=== PATIENT | female | born 1980 | race Caucasian/White ===

== ENCOUNTER 2017-01-02 03:44 | Emergency (ER) | payer BC ==
[~2017-01-02] VITALS: Ht 162.6 cm; Wt 111.8 kg
[~2017-01-02 03:44] MED LIST: CHOL100010 PO; LEVO112T4 PO
[2017-01-02 03:48] VITALS: TEMP 36.5; Ht 162.6 cm; Wt 111.8 kg
[2017-01-02] MEDS ORDERED: ONDANSETRON INJ 2 MG/ML 2 ML VIAL IV STA (03:57)
[2017-01-02] MEDS ORDERED: ACETAMINOPHEN IV 650 MG in EMPTY BAG 0 ML IV STA (03:57)
[2017-01-02] MEDS ORDERED: SODIUM CHLORIDE 0.9% 500ML 500 ML IV STA (03:57)
[2017-01-02] MEDS ORDERED: SODIUM CHLORIDE 0.9% 1000ML 1,000 ML IV STA (03:57)
[2017-01-02] MEDS ORDERED: NAPR-1221 PO (04:07)
[2017-01-02] MEDS ORDERED: FLX/5 PO (04:07)
--- NOTE | 2017-01-02 04:11 | EMERGENCY ROOM VISIT NOTE ---
History Report prepared by Meghan: Nnamdi Valente Under the Supervision of: Dr. Jolie Stephens M.D. First contact with patient: 03:53 Chief Complaint: FLANK PAIN Stated Complaint: SEVERE RIGHT SIDE PAIN History of Present Illness The patient is a 36 year old female who presents to the Emergency Room with complaints of waxing and waning pain in the right lower abdominal quadrant that began shortly prior to arrival. She also complains of pain in her right lower back. The patient notes that she felt fine when she went to sleep last night, and woke up in pain early this morning. She has a history of kidney stone and cholecystectomy. She denies any chance of . Source of History: patient Onset: Shortly HEALTH SAFETY MANAGER Position: abdomen (RLQ) Timing: waxes/wanes Associated Symptoms: + back pain Review of Systems See HPI for pertinent positives & negatives. A total of 10 systems reviewed and were otherwise negative. Past Medical & Surgical Medical Problems: (1) Kidney stones Family History Diabetes mellitus FH: cancer FH: heart disease FH: lung disease Hypertension Social History Smoking Status: Never Smoker Marital Status: single Housing Status: unknown Occupation Status: employed Current/Historical Medications Scheduled Levothyroxine Sodium (Levothyroxine Sodium), 1 TAB PO QAM Scheduled PRN Cyclobenzaprine HCl (Cyclobenzaprine HCl), 5 MG PO BID PRN for Muscle Spasms Hydrocodone/Acetaminophen 5MG/325MG ([place] 5MG/325MG), 1 TABLET PO Q6 PRN for Pain Naproxen (Naproxen), 375 MG PO BID PRN for Pain Allergies Coded Allergies: No Known Allergies (Unverified , 01/02/17) Physical Exam Vital Signs Date Time Temp Pulse Resp B/P Pulse Ox O2 Delivery O2 Flow Rate FiO2 01/02/17 06:47 72 18 157/84 96 Room Air 01/02/17 05:21 66 16 134/69 96 Room Air 01/02/17 03:48 36.5 81 18 151/89 94 Room Air Physical Exam Vital signs reviewed. General: Well-appearing female, in no significant distress. HEENT: No scleral icterus, PERRLA, neck supple. Atraumatic. Cardiovascular: Regular rate and rhythm, no extra sounds. Pulmonary: Clear to auscultation bilaterally, normal work of breathing. Abdomen: Soft, positive bowel sounds.Tenderness to palpation in the RUQ. No rebounding or guarding. Obese abdomen. Musculoskeletal: Atraumatic, no peripheral edema. Neurologic: Patient awake alert and oriented x 3 Skin: Warm, dry, no rash Medical Decision & Procedures ER Provider Diagnostic Interpretation: Radiology results as stated below per my review and radiologist interpretation: CT ABDOMEN & PELVIS: The visualized lower thorax is unremarkable. Hepatic steatosis. Gallbladder surgically absent. Spleen, pancreas, and adrenal glands are unremarkable. Nonobstructing calculus within the right kidney. Otherwise, the kidneys, ureters and urinary bladder are unremarkable. The uterus and adnexa are unremarkable. The appendix is within normal limits. The stomach, small bowel, and colon are unremarkable. No free fluid. No free air. No acute osseous abnormality. Radiologist: Tee Medley MD Study ready at 04:20 and initial results transmitted at 04:48. EXAMINATION: PELVIC ULTRASOUND CLINICAL HISTORY: right ovarian cyst, s/p L oophorectomy PAIN COMPARISON STUDY: CT study same date. FINDINGS: The uterus measured 10 cm maximum linear dimension. A retroflexed configuration. Possible 1 cm lower uterine segment endometrial polyp.. The endometrial stripe measured trace free fluid within the central canal. Endometrial thickness 6 mm.. 1 cm lower uterine segment endometrial polyp. The right ovary measured 4 x 3 x 1.9 cm. Normal vascular flow. The left ovary measured surgically removed. There is no ultrasonographic evidence of ovarian torsion. It should be noted that ovarian torsion can be present with normal Doppler ultrasonographic findings. There was no evidence of pathologic free pelvic fluid. IMPRESSION: 1. Status post left ovarian removal. 2. Retroflexed uterus with a 1 cm endometrial polyp the lower uterine segment. 3. Normal vascular flow to the right ovary. Electronically signed by: Addy Collado M.D. 01/02/2017 7:04 AM Dictated Date/Time: 01/02/2017 7:00 AM Laboratory Results 01/02/17 04:00 Red Blood Count 4.35, Mean Corpuscular Volume 88.5, Mean Corpuscular Hemoglobin 31.7, Mean Corpuscular Hemoglobin Concent 35.8, Mean Platelet Volume 8.7, Neutrophils (%) (Auto) 64.0, Lymphocytes (%) (Auto) 26.3, Monocytes (%) (Auto) 6.3, Eosinophils (%) (Auto) 2.9, Basophils (%) (Auto) 0.2, Neutrophils # (Auto) 6.68, Lymphocytes # (Auto) 2.75, Monocytes # (Auto) 0.66, Eosinophils # (Auto) 0.30, Basophils # (Auto) 0.02 01/02/17 04:00 Test 01/02/17 04:00 01/02/17 04:08 White Blood Count 10.44 K/uL (4.8-10.8) Red Blood Count 4.35 M/uL (4.2-5.4) Hemoglobin 13.8 g/dL (12.0-16.0) Hematocrit 38.5 % (37-47) Mean Corpuscular Volume 88.5 fL (80-100) Mean Corpuscular Hemoglobin 31.7 pg (25-34) Mean Corpuscular Hemoglobin Concent 35.8 g/dl (32-36) Platelet Count 330 K/uL (130-400) Mean Platelet Volume 8.7 fL (7.4-10.4) Neutrophils (%) (Auto) 64.0 % Lymphocytes (%) (Auto) 26.3 % Monocytes (%) (Auto) 6.3 % Eosinophils (%) (Auto) 2.9 % Basophils (%) (Auto) 0.2 % Neutrophils # (Auto) 6.68 K/uL (1.4-6.5) Lymphocytes # (Auto) 2.75 K/uL (1.2-3.4) Monocytes # (Auto) 0.66 K/uL (0.11-0.59) Eosinophils # (Auto) 0.30 K/uL (0-0.5) Basophils # (Auto) 0.02 K/uL (0-0.2) RDW Standard Deviation 39.6 fL (36.4-46.3) RDW Coefficient of Variation 12.2 % (11.5-14.5) Immature Granulocyte % (Auto) 0.3 % Immature Granulocyte # (Auto) 0.03 K/uL (0.00-0.02) Anion Gap 6.0 mmol/L (3-11) Est Creatinine Clear Calc Drug Dose 129.7 ml/min Estimated GFR () 123.1 Estimated GFR (Non- 106.2 BUN/Creatinine Ratio 15.6 (10-20) Calcium Level 8.5 mg/dl (8.5-10.1) Total Bilirubin 0.2 mg/dl (0.2-1) Direct Bilirubin < 0.1 mg/dl (0-0.2) Aspartate Amino Transf (AST/SGOT) 18 U/L (15-37) Alanine Aminotransferase (ALT/SGPT) 44 U/L (12-78) Alkaline Phosphatase 72 U/L (45-117) Total Protein 7.6 gm/dl (6.4-8.2) Albumin 3.4 gm/dl (3.4-5.0) Lipase 168 U/L (73-393) Human Chorionic Gonadotropin, Qual NEG (NEG) Urine Color YELLOW Urine Appearance CLEAR (CLEAR) Urine pH 6.5 (4.5-7.5) Urine Specific [place] 1.020 (1.000-1.030) Urine Protein NEG (NEG) Urine Glucose (UA) NEG (NEG) Urine Ketones NEG (NEG) Urine Occult Blood TRACE (NEG) Urine Nitrite NEG (NEG) Urine Bilirubin NEG (NEG) Urine Urobilinogen NEG (NEG) Urine Leukocyte Esterase NEG (NEG) Urine WBC (Auto) 1-5 /hpf (0-5) Urine RBC (Auto) 0-4 /hpf (0-4) Urine Hyaline Casts (Auto) 1-5 /lpf (0-5) Urine Epithelial Cells (Auto) 20-30 /lpf (0-5) Urine Bacteria (Auto) NEG (NEG) Laboratory results per my review. Medications Administered Medications (Trade) Dose Ordered Sig/Shukri Route Start Time Stop Time Status Last Admin Dose Admin Sodium Chloride 500 ml @ 999 mls/hr Q31M STAT IV 01/02/17 03:57 01/02/17 04:27 DC 01/02/17 04:22 999 MLS/HR Sodium Chloride (Nss 1000ml) 1,000 ml @ 200 mls/hr Q5H STAT IV 01/02/17 03:57 01/02/17 08:56 01/02/17 04:22 200 MLS/HR Ondansetron HCl 4 mg 4 mg NOW STAT IV 01/02/17 03:57 01/02/17 04:03 DC 01/02/17 04:07 4 MG Acetaminophen/ Empty Bag (Ofirmev Iv/ Empty Iv Bag 100ml) 65 ml @ 260 mls/hr NOW STAT IV 01/02/17 03:57 01/02/17 04:11 DC 01/02/17 04:22 260 MLS/HR ED Course 0357: Past medical records reviewed. The patient was evaluated in room B9. A complete history and physical examination was performed. \ 0357: Ordered Acetaminophen 65 mL @ 260 mL/hr IV, Zofran 4 mg IV, Sodium Chloride 1000 mL @ 200 mL/hr IV, Sodium Chloride 500 mL @ 999 mL/hr IV. Medical Decision Differential diagnosis: Etiologies such as renal colic, appendicitis, diverticulitis, mesenteric ischemia, aortic pathology, infections, inflammatory bowel disease, PUD, biliary pathology, UTI, as well as others were entertained. This patient was evaluated and appeared to be in some discomfort. IV access was obtained and laboratory work was drawn. Patient was medicated with IV Tylenol and Zofran as she drove to the hospital. She was hydrated with normal saline solution. Laboratory work was obtained and is fairly unrevealing. White blood cell count is normal, urinalysis is negative. Patient's test is negative. CT scan abdomen and pelvis was performed to rule out ureteral calculi, this study is significant for a right intrarenal stone, no ureteral calculi. On reevaluation, the patient is still fairly tender in the right lower quadrant. The appendix is identified on the CT and is normal. Patient is status post cholecystectomy. Liver enzymes are normal. Patient was sent for an ultrasound of the pelvis. This study is significant for an endometrial polyp. Patient is status post left nephrectomy. The etiology of the patient's abdominal pain is unclear at this time. She was asked to use ibuprofen as needed for pain. She will use [place] as needed for more severe pain. She was advised not to drive or to take Tylenol with this medication. Patient will follow-up with her physician this week for reevaluation and schedule plan with [employer] within the next 2 weeks. She will return to the ER for worsening of symptoms or any medical concerns. [place] Drug Monitoring Program Search Results: patient reviewed within database, no issues identified Impression Primary Impression: Right sided abdominal pain Scribe Attestation The scribe's documentation has been prepared under my direction and personally reviewed by me in its entirety. I confirm that the note above accurately reflects all work, treatment, procedures, and medical decision making performed by me. Departure Information Prescriptions Hydrocodone/Acetaminophen 5MG/325MG ([place] 5MG/325MG) Tab 1 TABLET PO Q6 Y for Pain, #20 TAB Prov: Jolie Stephens M.D. 01/02/17 Referrals No Doctor, Assigned (PCP) Patient Instructions [facility]
[2017-01-02 04:16] LABS: HEMATOCRIT 38.5 % (37-47); MEAN CELL VOLUME 88.5 fL (80-100); RED BLOOD COUNT 4.35 M/uL (4.2-5.4); WHITE BLOOD COUNT 10.44 K/uL (4.8-10.8)
[2017-01-02 04:17] LABS: BASO % 0.2 %; BASO ABS # 0.02 K/uL (0-0.2); COMPLETE YES; EOS % 2.9 %; IG% 0.3 %; LYMPH % 26.3 %; LYMPH ABS # 2.75 K/uL (1.2-3.4); MEAN CORPUSCULAR HEMOGLOBIN 31.7 pg (25-34); MEAN CORPUSCULAR HGB CONC 35.8 g/dl (32-36); MEAN PLATELET VOLUME 8.7 fL (7.4-10.4); MONO % 6.3 %; PLATELET COUNT 330 K/uL (130-400)
[2017-01-02 04:20] LABS: URINE APPEARANCE CLEAR (CLEAR); URINE BILIRUBIN NEG (NEG); URINE COLOR YELLOW; URINE EPITHELIAL CELL AUTO 20-30 /lpf (0-5); URINE NITRITE NEG (NEG); URINE PH 6.5 (4.5-7.5); UROBILINOGEN NEG (NEG); ZZUR CULT IF INDIC CLEAN CATCH NO
[2017-01-02 04:21] LABS: MANUAL MICROSCOPIC REQUIRED? NO; REVIEW REQ? NO
[2017-01-02 04:42] LABS: PREG INTERNAL NEGATIVE QC NEG CLEAR BACKGROUND; PREG INTERNAL POSITIVE QC POS CONTROL LINE
[2017-01-02 04:43] LABS: ALT/SGPT 44 U/L (12-78); AST/SGOT 18 U/L (15-37); BLOOD UREA NITROGEN 11 mg/dl (7-18); BUN/CREATININE RATIO 15.6 (10-20); CALCIUM 8.5 mg/dl (8.5-10.1); CARBON DIOXIDE 31 mmol/L (21-32); CHLORIDE 106 mmol/L (98-107); CREATININE 0.72 mg/dl (0.60-1.20); GLUCOSE 106 mg/dl (70-99); POTASSIUM 3.8 mmol/L (3.5-5.1); SODIUM 143 mmol/L (136-145)
[2017-01-02 04:45] LABS: ALKALINE PHOSPHATASE 72 U/L (45-117)
[2017-01-02] MEDS ORDERED: HYDR-5688 PO (06:53)
--- NOTE | 2017-01-02 07:06 | DIAGNOSTIC IMAGING REPORT ---
EXAMINATION: PELVIC ULTRASOUND CLINICAL HISTORY: right ovarian cyst, s/p L oophorectomy PAIN COMPARISON STUDY: CT study same date. FINDINGS: The uterus measured 10 cm maximum linear dimension. A retroflexed configuration. Possible 1 cm lower uterine segment endometrial polyp.. The endometrial stripe measured trace free fluid within the central canal. Endometrial thickness 6 mm.. 1 cm lower uterine segment endometrial polyp. The right ovary measured 4 x 3 x 1.9 cm. Normal vascular flow. The left ovary measured surgically removed. There is no ultrasonographic evidence of ovarian torsion. It should be noted that ovarian torsion can be present with normal Doppler ultrasonographic findings. There was no evidence of pathologic free pelvic fluid. IMPRESSION: 1. Status post left ovarian removal. 2. Retroflexed uterus with a 1 cm endometrial polyp the lower uterine segment. 3. Normal vascular flow to the right ovary. Electronically signed by: Addy Collado M.D. 01/02/2017 7:04 AM Dictated Date/Time: 01/02/2017 7:00 AM
--- NOTE | 2017-01-02 07:39 | DIAGNOSTIC IMAGING REPORT ---
ABDOMEN AND PELVIS CT WITHOUT CONTRAST CT DOSE: 2046.48 mGy.cm HISTORY: Pain R flank pain TECHNIQUE: Multiaxial CT images of the abdomen and pelvis were performed without the use of intravenous and oral contrast according to the standard department stone protocol. COMPARISON STUDY: 12/23/2010 FINDINGS: Lung bases are clear. Fatty infiltration of liver. Pancreas spleen and kidneys are otherwise unremarkable. There is a 4 mm nonobstructing calcification lower aspect right kidney. A pattern is nonobstructive. Uterus is anteflexed. There is no significant free fluid within pelvic cul-de-sac. IMPRESSION: 1. 4 mm nonobstructing calcification lower pole right kidney. 2. Fatty infiltration of liver. 3. Otherwise negative study Electronically signed by: Addy Collado M.D. 01/02/2017 7:36 AM Dictated Date/Time: 01/02/2017 7:26 AM
[2017-01-02 07:54] VITALS: BP 153/67; PULSE 73; O2SAT 97
[2017-04-06] MEDS ORDERED: MULT-513 PO (12:19)
[2017-04-13] MEDS ORDERED: OXYC-57 PO ×2 (09:34→09:46)
== END 2017-01-02 08:18 | disposition home or self-care (01) ==
LOC: C.EDB 03:46
DX: R10.31 Right lower quadrant pain (principal); M54.5 Low back pain; Z90.49 Acquired absence of other specified parts of digestive tract; Z87.442 Personal history of urinary calculi; Z83.3 Family history of diabetes mellitus; Z80.9 Family history of malignant neoplasm, unspecified; Z82.49 Family history of ischemic heart disease and other diseases of the circulatory system; Z79.899 Other long term (current) drug therapy; E66.9 Obesity, unspecified; Z68.41 Body mass index [BMI] 40.0-44.9, adult

== ENCOUNTER 2017-04-13 06:38 | Day surgery (SDC) | payer BC ==
[2017-04-06 12:20] VITALS: BMI 42.0
--- NOTE | 2017-04-06 12:38 | PAT Medication Instructions ---
Service Date Apr 06, 2017. Current Home Medication List Cyclobenzaprine HCl (Cyclobenzaprine HCl), 5 MG PO BID PRN for Muscle Spasms Levothyroxine Sodium (Levothyroxine Sodium), 1 TAB PO QAM Multivitamins/Minerals (Mvi With Minerals), 1 TAB PO QAM Naproxen (Naproxen), 375 MG PO BID PRN for Pain Medication Instructions For Your Scheduled Surgery - Hold the following medications the morning of surgery: Multivitamins/Minerals (Mvi With Minerals), 1 TAB PO QAM Naproxen (Naproxen), 375 MG PO BID PRN for Pain (otherwise okay to continue per surgeon) Cyclobenzaprine HCl (Cyclobenzaprine HCl), 5 MG PO BID PRN for Muscle Spasms - Take the following medications the morning of surgery with a sip of water OTHERWISE NOTHING TO EAT OR DRINK AFTER MIDNIGHT: Levothyroxine Sodium (Levothyroxine Sodium), 1 TAB PO QAM - Take the following medications as scheduled the night before surgery: Cyclobenzaprine HCl (Cyclobenzaprine HCl), 5 MG PO BID PRN for Muscle Spasms If you have any questions please call us at [phone] or [phone] or [phone]
[2017-04-06 14:03] LABS: BUN/CREATININE RATIO 12.1 (10-20); CALCIUM 8.9 mg/dl (8.5-10.1); CREATININE 0.73 mg/dl (0.60-1.20); POTASSIUM 3.8 mmol/L (3.5-5.1)
[2017-04-06 14:36] LABS: BASO % 0.3 %; BASO ABS # 0.02 K/uL (0-0.2); COMPLETE YES; EOS % 1.8 %; HEMATOCRIT 37.8 % (37-47); IG% 0.3 %; LYMPH % 30.3 %; MEAN CELL VOLUME 91.1 fL (80-100); MEAN CORPUSCULAR HGB CONC 35.2 g/dl (32-36); MONO % 5.4 %; NEUT % 61.9 %; PLATELET COUNT 340 K/uL (130-400); RED BLOOD COUNT 4.15 M/uL (4.2-5.4); WHITE BLOOD COUNT 7.58 K/uL (4.8-10.8)
[~2017-04-13] VITALS: Ht 162.6 cm; Wt 110.9 kg
[~2017-04-13 06:38] MED LIST changes: -CHOL100010 PO; +FLX/5 PO; +LACTATED RINGER'S 1000ML 1,000 ML IV SCH; +MULT-513 PO; +NAPR375T3 PO
[2017-04-13 07:02] VITALS: BP 158/74; PULSE 73; TEMP 36.7; O2SAT 97; Ht 162.6 cm; Wt 110.9 kg
[2017-04-13] MEDS ORDERED: FENTANYL CITRATE INJ 50 MCG/1 ML 2 ML VIAL ONE ×2 (07:36→09:51)
[2017-04-13] MEDS ORDERED: MIDAZOLAM HCL 1 MG/ML 2ML VIAL ONE (07:36)
--- NOTE | 2017-04-13 08:10 | History & Physical Bridge Note ---
H&P Re-Evaluation Bridge Note: I have examined the patient, reviewed the History & Physical and in the interval since the performance of the History & Physical I have noted the following changes of clinical significance: No changes noted
[2017-04-13] MEDS ORDERED: ONDANSETRON INJ 2 MG/ML 2 ML VIAL ONE (08:28)
[2017-04-13] MEDS ORDERED: DEXAMETHASONE SOD INJ 4 MG/ML VIAL ONE (08:28)
[2017-04-13] MEDS ORDERED: LIDOCAINE HCL 2% 2 ML VIAL (20MG/ML) ONE (08:28)
[2017-04-13] MEDS ORDERED: PROPOFOL IV EMULSION 10 MG/ML 20 ML VIAL IV ONE (08:28)
[2017-04-13] MEDS ORDERED: SODIUM CHLORIDE 0.9% 1000ML 1,000 ML IV SCH (09:31)
--- NOTE | 2017-04-13 09:33 | [facility] Post Operative Brief Note ---
Immediate Operative Summary Operative Date Apr 13, 2017. Pre-Operative Diagnosis Irregular Bleeding, Endometrial Polyp Post-Operative Diagnosis Same as preoperative Procedure(s) Performed Examination Under Anesthesia, Hysteroscopy Dilation [place], Endometrial Polyp Resection Surgeon Dr. Ra Mcallister [place] Surgeon(s) None per surgeon Estimated Blood Loss 10CC Findings dictated Fluids (cc crystalloids) 600 Specimens A.) Endometrial Polyp Drains none Complication(s) None Disposition Recovery Room / PACU
[2017-04-13] MEDS ORDERED: OXYC-57 PO ×2 (09:34→09:46)
--- NOTE | 2017-04-13 09:36 | Discharge Instructions ---
Discharge Instructions Date of Service Apr 13, 2017. Admission Reason for Admission: Irregular Bleeding, Obesity, Endometrial Polyp, Discharge Discharge Diagnosis / Problem: post op Discharge Goals Goal(s): Routine recovery after surgery Activity Recommendations Activity Limitations: resume your previous activity ACTIVITY RECOMMENDATIONS: * Avoid tampons, douching, hot tubs, pools, and intercourse until bleeding has stopped. * May shower as usual. * No strenuous activity for 24-48 hours. After 24-48 hours, you can do anything you feel like doing (driving and sports are okay). RETURN TO SCHOOL/WORK: * You may return to school or work after 24 hours unless specified by your physician. DIET: * Resume previous diet. MEDICATIONS: Resume previous medications unless instructed otherwise by your surgeon. Ibuprofen 200mg 2-3 tablets every 4-6 hours as needed --OR-- Aleve 2 tablets every 8-12 hours as needed for post-operative discomfort Medications are over the counter. Tylenol may be used if above medications are contraindicated or not preferred. Medication should be taken with food or milk. do not take on an empty stomach. SPECIAL CARE INSTRUCTIONS: * Check temperature twice daily for one week. Report any elevation over 101 degrees. * Call office if you experience increased pelvic pain or discomfort not relieved by pain medicine, if you have foul smelling vaginal discharge, if you have bleeding that is heavier than a normal menstrual flow. If you are changing a maxi pad every 1- 2 hours, this is too heavy. vaginal spotting is normal for 1-2 weeks. FOLLOW UP VISIT: Call your doctor's office for a post-operative visit. . Current Hospital Diet Patient's current hospital diet: Discharge Diet Recommended Diet: Regular Diet Procedures Procedures Performed: Examination Under Anesthesia, Hysteroscopy Dilation [place], Endometrial Polyp Resection Pending Studies Studies pending at discharge: no Medical Emergencies . Who to Call and When: Medical Emergencies: If at any time you feel your situation is an emergency, please call 911 immediately. . Non-Emergent Contact Non-Emergency issues call your: Specialist . . "Provider Documentation" section prepared by Ra Mcallister. . VTE Core Measure Inpt VTE Proph given/why not?: Treatment not indicated
[2017-04-13] MEDS ORDERED: LABETALOL HCL IV 5 MG/ML 20ML IV PRN (09:45)
[2017-04-13] MEDS ORDERED: FENTANYL CITRATE INJ 50 MCG/1 ML 2 ML VIAL IV PRN (09:45)
[2017-04-13] MEDS ORDERED: IBUPROFEN 600 MG TAB PO PRN (09:45)
[2017-04-13] MEDS ORDERED: FLUMAZENIL 0.1 MG/1 ML 10 ML VIAL IV PRN (09:45)
[2017-04-13] MEDS ORDERED: PROMETHAZINE HCL INJ 12.5 MG in SODIUM CHLORIDE 0.9% 50ML 50 ML IV PRN (09:45)
[2017-04-13] MEDS ORDERED: NALOXONE HCL 0.4 MG/1 ML VIAL/CARP IV PRN (09:45)
[2017-04-13] MEDS ORDERED: KETOROLAC TROMETHAMINE 30 MG/ML VIAL IV. PRN (09:45)
[2017-04-13] MEDS ORDERED: ATROPINE SULFATE 0.1 MG/ML 5ML SYR IV PRN (09:45)
[2017-04-13] MEDS ORDERED: EpHEDrine SULFATE INJ 50 MG/ML AMP IV PRN (09:45)
[2017-04-13] MEDS ORDERED: OXYCODONE/ACETAMINOPHEN 5-325 TAB PO PRN ×2 (09:45)
[2017-04-13] MEDS ORDERED: METOCLOPRAMIDE HCL INJ 5 MG/ML 2 ML VIAL IV PRN (09:45)
[2017-04-13] MEDS ORDERED: ONDANSETRON INJ 2 MG/ML 2 ML VIAL IV PRN ×2 (09:45)
[2017-04-13] MEDS ORDERED: HYDROCODONE/ACETAMOPHEN 5/325MG TAB PO PRN ×2 (09:45)
[2017-04-13] MEDS ORDERED: KETOROLAC TROMETHAMINE 30 MG/ML VIAL ONE (09:51)
--- NOTE | 2017-04-13 10:19 | Anesthesiology Progress Note ---
Anesthesia Post Op Note Date & Time Apr 13, 2017 at 10:19 Vital Signs Pain Intensity: 3 Vital Signs Past 12 Hours Date Time Temp Pulse Resp B/P (MAP) Pulse Ox O2 Delivery O2 Flow Rate FiO2 04/13/17 10:13 36.8 66 16 136/79 (86) 100 Nasal Cannula 04/13/17 10:02 165/79 04/13/17 10:01 62 15 100 04/13/17 10:01 63 15 04/13/17 09:57 175/92 04/13/17 09:56 56 12 100 04/13/17 09:56 55 12 04/13/17 09:52 168/93 04/13/17 09:51 60 12 04/13/17 09:51 60 12 100 04/13/17 09:47 172/107 04/13/17 09:46 64 11 04/13/17 09:46 64 11 100 04/13/17 09:44 172/85 04/13/17 09:42 197/108 04/13/17 09:41 36.6 66 12 172/85 100 Mask 10 04/13/17 09:41 79 17 100 04/13/17 09:41 71 17 04/13/17 07:02 36.7 73 18 158/74 (102) 97 Room Air Notes Mental Status: alert / awake / arousable, participated in evaluation Pt Amnestic to Procedure: Yes Nausea / Vomiting: adequately controlled Pain: adequately controlled Airway Patency, RR, SpO2: stable & adequate BP & HR: stable & adequate Hydration State: stable & adequate Anesthetic Complications: no major complications apparent
[2017-04-13 10:35] VITALS: BP 163/70; PULSE 78; TEMP 36.6; O2SAT 96
[2017-04-13 11:05] VITALS: BP 156/72; PULSE 71; O2SAT 96
[2017-04-13 11:35] VITALS: BP 146/89; PULSE 70; O2SAT 96
--- NOTE | 2017-04-13 12:55 | OPERATIVE REPORT ---
DATE OF OPERATION: 04/13/2017 INDICATION FOR PROCEDURE: This is a 36-year-old with abnormal uterine bleeding. PREOPERATIVE DIAGNOSES: 1. Abnormal uterine bleeding. 2. History of endometrial diagnosis. 3. History of endometrial polyps seen on ultrasound. POSTOPERATIVE DIAGNOSIS: Same. PROCEDURES: 1. Examination under anesthesia. 2. Dilation and curettage. 3. Hysteroscopy. 4. Endometrial polyp resection using MyoSure. SURGEON: Dr. Mcallister. AMMUNITION STORAGE SUPERINTENDENT: None. ESTIMATED BLOOD LOSS: 100 mL. ANESTHESIA: General. IV FLUIDS: 600 mL. URINE: 100 mL clear urine at end of the procedure. SPECIMEN: Endometrial polyp with curettings. FINDINGS: Normal female escutcheon. No lesions on the vulva, vagina or cervix. Endometrium appeared atrophic because of a history of ablation. Both ostia were identified. There is a polyp on the posterior wall of the endometrium. COMPLICATIONS: None. DRAINS: None. DISPOSITION: Stable in recovery room. OPERATION AND FINDINGS: PROCEDURE: The patient was taken to the operating room where she was prepped and draped in normal sterile fashion in dorsal lithotomy position after time out was called. Bladder was catheterized and 100 mL of clear urine was obtained. Heavy weighted speculum was placed in the vagina. A Barraza retractor was used to retract the anterior part of the vagina. Cervix was grabbed with a single tooth tenaculum. Cervix was dilated to a size 24. A hysteroscope was placed into the uterine cavity and findings of the hysteroscope is as dictated above. The outflow tract of the hysteroscope was removed. MyoSure device was passed through the outflow tract. Resection of the polyp was performed including resection of the endometrial cavity with MyoSure as well. Specimen sent to pathology for pathological analysis. The scope and MyoSure were both removed. There was good hemostasis at the end of the procedure. All instruments are removed from the vagina including retractors and sponges and accounted for x2. The patient is doing well in stable condition. I attest to the content of the Intraoperative Record and any orders documented therein. Any exception s are noted below.
== END 2017-04-13 11:30 | disposition home or self-care (01) ==
LOC: C.ACU 06:38
PROVIDERS: ATTEND Obstetrics & Gynecology
DX: N84.0 Polyp of corpus uteri (principal); E78.5 Hyperlipidemia, unspecified; K76.0 Fatty (change of) liver, not elsewhere classified; K21.9 Gastro-esophageal reflux disease without esophagitis; E03.9 Hypothyroidism, unspecified; E55.9 Vitamin D deficiency, unspecified; Z79.899 Other long term (current) drug therapy